=== PATIENT | female | born 1940 | race Caucasian/White ===

== ENCOUNTER → 2018-01-13 13:41 | Outpatient (CLI) | payer MEDICARE, SELFPAY ==
[2018-01-13 14:54] LABS: ALB/GLOB Ratio 0.9 RATIO (0.9-2.4); AST(SGOT) 15 U/L (15-37); Alanine Aminotransfer ALT/SGPT 17 U/L (13-56); Albumin, Serum 3.6 g/dL (3.2-5.0); Alkaline Phosphatase 103 U/L (45-117); Anion Gap 6 (5-15); BUN 21 mg/dL (7-18); BUN/Creat Ratio 20.6 RATIO (10-20); Calcium,Total 8.7 mg/dL (8.5-10.1); Chloride 109 mmol/L (98-107); Creatinine, Serum 1.02 mg/dL (0.55-1.02); EST Glomerular Filtration Rate 56 mL/min (>60); Est Glom Filt Rate - Afr Amer 68 mL/min (>60); Globulin 4.2 g/dL (2.2-4.2); Glucose 89 mg/dL (74-106); Potassium 4.3 mmol/L (3.5-5.1); Protein, Total 7.8 g/dL (6.4-8.2); Sodium Level 141 mmol/L (136-145); Thyroid Stim Hormone (TSH) 2.17 uIU/mL (0.358-3.74)
== END ==
PROVIDERS: Family Provider Family Medicine; PCP Family Medicine; Visit Provider Family Medicine
DX: E03.9 Hypothyroidism, unspecified (principal); Z85.528 Personal history of other malignant neoplasm of kidney
CPT/HCPCS: 80053; 84443

== ENCOUNTER → 2018-07-02 08:04 | Outpatient (CLI) | payer MEDICARE, SELFPAY ==
[2018-07-02 09:15] LABS: ALB/GLOB Ratio 0.8 RATIO (0.9-2.4); AST(SGOT) 15 U/L (15-37); Alanine Aminotransfer ALT/SGPT 20 U/L (13-56); Albumin, Serum 3.4 g/dL (3.2-5.0); Alkaline Phosphatase 87 U/L (45-117); Anion Gap 6 (5-15); BUN 14 mg/dL (7-18); BUN/Creat Ratio 14.5 RATIO (10-20); Calcium,Total 8.8 mg/dL (8.5-10.1); Chloride 106 mmol/L (98-107); Cholesterol 165 mg/dL (200); Creatinine, Serum 0.96 mg/dL (0.55-1.02); EST Glomerular Filtration Rate 60 mL/min (>60); Est Glom Filt Rate - Afr Amer 72 mL/min (>60); Globulin 4.1 g/dL (2.2-4.2); Glucose 97 mg/dL (74-106); High Density Lipoprotein 43 mg/dL; Potassium 4.1 mmol/L (3.5-5.1); Protein, Total 7.5 g/dL (6.4-8.2); Sodium Level 140 mmol/L (136-145); Triglycerides 147 mg/dL; Very Low Density Lipoprotein 29 mg/dL (5-40)
== END ==
PROVIDERS: Family Provider Family Medicine; PCP Family Medicine; Referring Provider Family Medicine; Visit Provider Family Medicine
DX: E78.5 Hyperlipidemia, unspecified (principal); N18.3 Chronic kidney disease, stage 3 (moderate); Z85.528 Personal history of other malignant neoplasm of kidney
CPT/HCPCS: 36415; 80053; 80061

== ENCOUNTER → 2019-06-23 07:43 | Outpatient (CLI) | payer MEDICARE, SELFPAY ==
[2019-06-23 09:04] LABS: ALB/GLOB Ratio 0.9 RATIO (0.9-2.4); AST(SGOT) 15 U/L (15-37); Alanine Aminotransfer ALT/SGPT 21 U/L (13-56); Albumin, Serum 3.6 g/dL (3.2-5.0); Alkaline Phosphatase 94 U/L (45-117); Anion Gap 3 (5-15); BUN 17 mg/dL (7-18); BUN/Creat Ratio 16.5 RATIO (10-20); Calcium,Total 8.7 mg/dL (8.5-10.1); Chloride 107 mmol/L (98-107); Cholesterol 171 mg/dL (200); Creatinine, Serum 1.03 mg/dL (0.55-1.02); EST Glomerular Filtration Rate 55 mL/min (>60); Est Glom Filt Rate - Afr Amer 67 mL/min (>60); Globulin 4.2 g/dL (2.2-4.2); Glucose 111 mg/dL (74-106); High Density Lipoprotein 49 mg/dL; Potassium 4.1 mmol/L (3.5-5.1); Protein, Total 7.8 g/dL (6.4-8.2); Sodium Level 139 mmol/L (136-145); Triglycerides 150 mg/dL; Very Low Density Lipoprotein 30 mg/dL (5-40)
[2019-06-23 10:52] LABS: Vitamin D,25 Hydroxy 44.5 ng/mL (29.95-100.01)
== END ==
LOC: LAB.FUTURE 07:46 → LAB 07:49
PROVIDERS: Family Provider Family Medicine; PCP Family Medicine; Referring Provider Family Medicine; Visit Provider Family Medicine
DX: E03.9 Hypothyroidism, unspecified (principal); E55.9 Vitamin D deficiency, unspecified; Z85.528 Personal history of other malignant neoplasm of kidney; E78.5 Hyperlipidemia, unspecified
CPT/HCPCS: 36415; 80053; 80061; 82306; 84443

== ENCOUNTER → 2020-06-16 07:58 | Outpatient (CLI) | payer MEDICARE, SELFPAY ==
[2020-06-16 08:34] LABS: Absolute Lymphocyte Count 1.58 X10^3/uL (0.83-4.51); Absolute Neutrophil Count 2.5 X10^3/uL (2.0-7.7); Basophil# 0.04 X10^3/uL; Basophil% 0.9 % (0-1); Eosinophil# 0.09 X10^3/uL; Eosinophils% 1.9 % (0-5); Hematocrit 39.8 % (37-47); Hemoglobin 12.7 g/dL (12.0-15.0); Lymphocyte # 1.58 X10^3/ul (4.0); Lymphocyte % 33.8 % (19-41); Mean Corp Hgb Conc 31.9 g/dL (32-36); Mean Corpuscular Hgb 30.5 pg (27.0-32.0); Mean Corpuscular Volume 95.7 fL (81-99); Monocyte# 0.49 X10^3/uL; Monocyte% 10.5 % (0-10); NRBC Flagged by Analyzer 0 % (0-5); Neutrophil # 2.47 X10^3/uL (2.7-7.7); Neutrophil % 52.7 % (47-70); Platelet Count 232 K/mm3 (150-450); RBC Distribution Width CV 12.4 % (11.6-14.6); RBC Distribution Width SD 43.1 fl (35.1-43.9); Red Blood Count 4.16 M/mm3 (4.2-5.4); White Blood Count 4.7 K/mm3 (4.4-11.0)
[2020-06-16 09:52] LABS: ALB/GLOB Ratio 0.9 RATIO (0.9-2.4); AST(SGOT) 17 U/L (15-37); Alanine Aminotransfer ALT/SGPT 21 U/L (13-56); Albumin, Serum 3.5 g/dL (3.2-5.0); Alkaline Phosphatase 81 U/L (45-117); Anion Gap 7 (5-15); BUN 15 mg/dL (7-18); BUN/Creat Ratio 14.7 RATIO (10-20); Calcium,Total 8.8 mg/dL (8.5-10.1); Chloride 107 mmol/L (98-107); Creatinine, Serum 1.02 mg/dL (0.55-1.02); EST Glomerular Filtration Rate 56 mL/min (>60); Est Glom Filt Rate - Afr Amer 67 mL/min (>60); Glucose 113 mg/dL (74-106); Potassium 4.1 mmol/L (3.5-5.1); Protein, Total 7.5 g/dL (6.4-8.2); Sodium Level 140 mmol/L (136-145); Thyroid Stim Hormone (TSH) 4.11 uIU/mL (0.358-3.74)
== END ==
PROVIDERS: PCP Family Medicine; Referring Provider Family Medicine; Visit Provider Family Medicine
DX: E03.9 Hypothyroidism, unspecified (principal); Z85.528 Personal history of other malignant neoplasm of kidney
CPT/HCPCS: 36415; 80053; 84443; 85025

== ENCOUNTER 2021-03-20 09:51 | Day surgery (SDC) | payer MEDICARE, SELFPAY ==
[2021-03-20] VITALS (7 sets, daily range): BP systolic 109–132; BP diastolic 69–86; PULSE 69–91; RESP 16; TEMP 36.2–37.1; O2SAT 98–100; BMI 22.1
[2021-03-20] MEDS: Lactated Ringers 1,000 ML 100 ML IV (10:54)
--- NOTE | 2021-03-20 13:50 | OP.PCM_ITS ---
Report of Operation Date of Procedure: 03/20/21 Pre-Operative Diagnosis: RIF trigger finger Post-Operative Diagnosis: same Surgery/Procedure Performed:: Release A-1 benjamin RIF Description of Surgical Findings:: Report of Operation Date of Procedure: Preoperative Diagnosis: A1 stenosing tenosynovitis, right [index ] finger Postoperative Diagnosis: same Procedure Performed: Release A1 benjamin, right [ index ] finger Anesthesia: IV Regional Anesthesiologist: Dwayne Perez M.D. Description of Procedure: With appropriate informed consent, the patient was taken to the operative suite. After the induction of regional anesthesia, the right upper extremity was prepared and draped sterilely. Subsequently, a transverse incision was made in the base of the [right index ] finger on the volar aspect overlying the annular benjamin with #15 blade scalpel. Hemostasis was perfected with bipolar electrocautery. Dissection was carried down to the flexor tendon sheath. Retractors were placed medially and laterally for protection of neurovascular structures. Thereafter, the annular benjamin was incised with a combination of scalpel and scissor dissection. The flexor tendon was inspected and I was able to take the right [index ] finger through a full range of motion without any catching, locking or triggering. Subsequently, the wound was irrigated and closed with interrupted sutures of 4-0 nylon. A sterile well- padded dressing and Ren wrap were applied. The tourniquet was released. Excellent blood flow returned to the right upper extremity. The patient was transferred to the PACU in stable and satisfactory condition. Alex Toth DO Surgeon: Alex Toth congressional assistant: None Type of Anesthesia: Block,Surekha Anesthesiologist: Dwayne Perez Admruby VTE Documentation VTE Present on Admission: No VTE Mechan Device Prophylaxis: SCD's VTE Pharm Prophylaxis ordered?: No Reason prophylaxis not ordered:: Treatment Not Indicated
== END 2021-03-20 14:16 | disposition home or self-care (01) ==
LOC: SDC 09:51 → AC 09:52
PROVIDERS: PCP Family Medicine; Referring Provider Orthopaedic Surgery; Visit Provider Orthopaedic Surgery
PROC: (CPT 26055; principal; 2021-03-20 12:40)
DX: M65.321 Trigger finger, right index finger (principal); M65.332 Trigger finger, left middle finger; M19.041 Primary osteoarthritis, right hand; Z20.822 Contact with and (suspected) exposure to COVID-19; Z79.890 Hormone replacement therapy; Z79.899 Other long term (current) drug therapy; K21.9 Gastro-esophageal reflux disease without esophagitis; E07.9 Disorder of thyroid, unspecified
CPT/HCPCS: 26055; 87426; C9803; J7120

== ENCOUNTER 2021-06-09 05:47 | Day surgery (SDC) | payer MEDICARE, SELFPAY ==
[2021-03-20 10:45] VITALS: BMI 22.1
[2021-06-09] VITALS (7 sets, daily range): BP systolic 105–138; BP diastolic 70–78; PULSE 72–85; RESP 16–18; TEMP 35.9–36.9; O2SAT 94–100; BMI 22.2
[2021-06-09] MEDS: Lactated Ringers 1,000 ML 100 ML IV (06:20)
--- NOTE | 2021-06-09 08:29 | PCM.OPRPT ---
Report of Operation Date of Procedure: 06/09/21 Pre-Operative Diagnosis: A 1 stenosing tenosynovitis LIF and LMF Post-Operative Diagnosis: same Surgery/Procedure Performed:: Release trigger fingers LIF and LMF Description of Surgical Findings:: Report of Operation Date of Procedure: Preoperative Diagnosis: A1 stenosing tenosynovitis, left [index and middle ] fingers Postoperative Diagnosis: same Procedure Performed: Release A1 pulleys, left [ middle and index ] fingers Anesthesia: IV Regional Anesthesiologist: Dwayne Estes M.D. Description of Procedure: With appropriate informed consent, the patient was taken to the operative suite. After the induction of regional anesthesia, the left upper extremity was prepared and draped sterilely. Subsequently, a transverse incision was made in the base of the [middle and index ] fingers on the volar aspect overlying the annular benjamin with #15 blade scalpel. Hemostasis was perfected with bipolar electrocautery. Dissection was carried down to the flexor tendon sheath. Retractors were placed medially and laterally for protection of neurovascular structures. Thereafter, the annular benjamin was incised with a combination of scalpel and scissor dissection. The flexor tendon was inspected and I was able to take the left [index and middle ] fingers through a full range of motion without any catching, locking or triggering. Subsequently, the wound was irrigated and closed with interrupted sutures of 4-0 nylon. A sterile well-padded dressing and Ren wrap were applied. The tourniquet was released. Excellent blood flow returned to the left upper extremity. The patient was transferred to the PACU in stable and satisfactory condition. Alex Toth DO Surgeon: Alex Toth gun tester: None Type of Anesthesia: Block,Cross Anchor Anesthesiologist: Dwayne Perez Admruby VTE Documentation VTE Present on Admission: No VTE Mechan Device Prophylaxis: SCD's VTE Pharm Prophylaxis ordered?: No Reason prophylaxis not ordered:: Treatment Not Indicated
[2021-06-09] MEDS: Cefazolin 2 GM in 0.9% Normal Saline 100 ML IV (09:07)
== END 2021-06-09 09:59 | disposition home or self-care (01) ==
LOC: SDC 05:48 → AC 05:49
PROVIDERS: PCP Family Medicine; Referring Provider Orthopaedic Surgery; Visit Provider Orthopaedic Surgery
PROC: (CPT 26055; principal; 2021-06-09 07:20)
DX: M65.322 Trigger finger, left index finger (principal); M65.332 Trigger finger, left middle finger; E07.9 Disorder of thyroid, unspecified; K21.9 Gastro-esophageal reflux disease without esophagitis; Z79.890 Hormone replacement therapy; Z79.899 Other long term (current) drug therapy; Z90.5 Acquired absence of kidney
CPT/HCPCS: 01810; 26055 ×2; J7120; A4216

== ENCOUNTER → 2021-06-29 08:21 | Outpatient (CLI) | payer MEDICARE, SELFPAY ==
[2021-06-29 10:04] LABS: Absolute Lymphocyte Count 1.23 X10^3/uL (0.83-4.51); Absolute Neutrophil Count 2.2 X10^3/uL (2.0-7.7); Basophil# 0.04 X10^3/uL; Basophil% 0.9 % (0-1); Eosinophil# 0.13 X10^3/uL; Hemoglobin 12.6 g/dL (12.0-15.0); Lymphocyte # 1.23 X10^3/ul (0.83-4.51); Lymphocyte % 28.8 % (19-41); Mean Corp Hgb Conc 32.3 g/dL (32-36); Mean Corpuscular Hgb 30.7 pg (27.0-32.0); Mean Corpuscular Volume 95.1 fL (81-99); Monocyte# 0.67 X10^3/uL; Monocyte% 15.7 % (0-10); NRBC Flagged by Analyzer 0 % (0-5); Neutrophil # 2.18 X10^3/uL (2.7-7.7); Neutrophil % 51.1 % (47-70); Platelet Count 214 K/mm3 (150-450); RBC Distribution Width CV 12.9 % (11.6-14.6); RBC Distribution Width SD 44.4 fl (35.1-43.9); White Blood Count 4.3 K/mm3 (4.4-11.0)
[2021-06-29 10:38] LABS: Anion Gap 6 (5-15); BUN 12 mg/dL (7-18); BUN/Creat Ratio 11.8 RATIO (10-20); Calcium,Total 9.1 mg/dL (8.5-10.1); Chloride 107 mmol/L (98-107); Creatinine, Serum 1.02 mg/dL (0.55-1.02); EST Glomerular Filtration Rate 55 mL/min (>60); Est Glom Filt Rate - Afr Amer 67 mL/min (>60); Glucose 119 mg/dL (74-106); Potassium 4.3 mmol/L (3.5-5.1); Sodium Level 139 mmol/L (136-145)
[2021-06-29 10:39] LABS: Vitamin D,25 Hydroxy 36.9 ng/mL
== END ==
PROVIDERS: PCP Family Medicine; Referring Provider Family Medicine; Visit Provider Family Medicine
DX: C64.1 Malignant neoplasm of right kidney, except renal pelvis (principal); E03.9 Hypothyroidism, unspecified; E55.9 Vitamin D deficiency, unspecified; K21.9 Gastro-esophageal reflux disease without esophagitis
CPT/HCPCS: 36415; 80048; 82306; 84443; 85025

== ENCOUNTER → 2022-07-05 | Outpatient (CLI) | payer MEDICARE, SELFPAY ==
--- NOTE | 2022-07-05 07:45 | US_ITS ---
STUDY: ABDOMINAL ULTRASOUND - RIGHT UPPER QUADRANT REASON FOR VISIT: Female, 81 years old RUQ PAIN TECHNIQUE: Ultrasound evaluation of the right upper quadrant was performed with real-time and static godwin-scale imaging. TECHNICAL QUALITY: Adequate. COMPARISON: None. FINDINGS: Liver: The liver measures 14.4 cm. There is increased echogenicity consistent with fatty infiltration. The bile ducts are within normal limits. There is hepatic color flow. The direction of portal flow is hepatopetal. There is no demonstrated mass lesion. Gallbladder: Normal distended gallbladder. The gallbladder wall measures 1.5 mm. There is a negative sonographic Thomson''s sign. There is no pericholecystic fluid. There are no gallstones. Common Bile Duct (C.B.D.): The common bile duct measures 5.5 mm. Pancreas: Normal size of the head, body and tail of the pancreas. There is increased echogenicity of the pancreas. There is no demonstrated pancreatic mass or cyst. Right Kidney: The patient is status post right nephrectomy. US/Gallbladder IMPRESSION: Fatty infiltration of the liver. Status post right nephrectomy. Electronically Signed: Josiah Mcdowell MD at 14:13 EDT ,
== END | disposition home or self-care (01) ==
LOC: US 07:43
PROVIDERS: PCP Nurse Practitioner Family; Referring Provider Nurse Practitioner Family; Visit Provider Nurse Practitioner Family
DX: R10.11 Right upper quadrant pain (principal)
CPT/HCPCS: 76705

== ENCOUNTER → 2023-06-05 | Outpatient (CLI) | payer MEDICARE, SELFPAY ==
[2023-06-05 08:32] LABS: Bacteria 0 SEEN /hpf (None Seen); Mucous, Urine 0 SEEN /hpf (<or=2+); Red Blood Cells-Urine 0 SEEN /hpf (0-5)
[2023-06-05 09:05] LABS: Absolute Lymphocyte Count 1.71 X10^3/uL (0.83-4.51); Absolute Neutrophil Count 2.5 X10^3/uL (2.0-7.7); Basophil# 0.05 X10^3/uL; Eosinophils% 2.1 % (0-5); Hematocrit 39.2 % (37-47); Hemoglobin 12.6 g/dL (12.0-15.0); Lymphocyte # 1.71 X10^3/ul (0.83-4.51); Lymphocyte % 35.8 % (19-41); Mean Corp Hgb Conc 32.1 g/dL (32-36); Mean Corpuscular Volume 96.6 fL (81-99); Mean Platelet Vol. 10.3 fl (6.2-12.0); Monocyte# 0.44 X10^3/uL; Monocyte% 9.2 % (0-10); NRBC Flagged by Analyzer 0 % (0-5); Neutrophil # 2.46 X10^3/uL (2.7-7.7); Neutrophil % 51.7 % (47-70); Platelet Count 201 K/mm3 (150-450); RBC Distribution Width CV 12.4 % (11.6-14.6); RBC Distribution Width SD 43.7 fl (35.1-43.9); Red Blood Count 4.06 M/mm3 (4.2-5.4); White Blood Count 4.8 K/mm3 (4.4-11.0)
[2023-06-05 09:55] LABS: ALB/GLOB Ratio 0.8 RATIO (0.9-2.4); AST(SGOT) 13 U/L (15-37); Alanine Aminotransfer ALT/SGPT 18 U/L (13-56); Albumin, Serum 3.4 g/dL (3.2-5.0); Alkaline Phosphatase 73 U/L (45-117); Anion Gap 5 (5-15); BUN 17 mg/dL (7-18); BUN/Creat Ratio 17.2 RATIO (10-20); Calcium,Total 8.8 mg/dL (8.5-10.1); Chloride 108 mmol/L (98-107); Cholesterol 146 mg/dL (200); Creatinine, Serum 0.99 mg/dL (0.55-1.02); EST Glomerular Filtration Rate 57 mL/min (>60); Est Glom Filt Rate - Afr Amer 69 mL/min (>60); Globulin 4.1 g/dL (2.2-4.2); Glucose 105 mg/dL (74-106); High Density Lipoprotein 47 mg/dL; Potassium 4.4 mmol/L (3.5-5.1); Protein, Total 7.5 g/dL (6.4-8.2); Sodium Level 140 mmol/L (136-145); Thyroid Stim Hormone (TSH) 2.56 uIU/mL (0.358-3.74); Triglycerides 167 mg/dL; Very Low Density Lipoprotein 33 mg/dL (5-40)
[2023-06-05 10:11] LABS: Color, Urine Yellow (Yellow); Glucose, Dipstick Normal (Normal); Ketone-Dipstick Negative (Negative); Leukocyte Esterase-Dipstick 500 /ul (Negative); Nitrite-Dipstick Negative (Negative); Occult Blood-Urine Negative /ul (Negative); Protein-Dipstick 15 mg/dl (Negative); Urine Clarity Clear (Clear); Urine Urobilinogen 1 mg/dl (Normal)
[2023-06-05 10:16] LABS: Urine Bilirubin Dipstick 1 mg/dL (Negative)
[2023-06-05 11:29] LABS: Squamous Epithelial Cells - UA 0-5 SEEN /hpf (5-10); White Blood Cells 0-5 SEEN /hpf (0-5)
== END | disposition home or self-care (01) ==
LOC: LAB 08:15
PROVIDERS: PCP Nurse Practitioner Family; Referring Provider Nurse Practitioner Family; Visit Provider Nurse Practitioner Family
DX: E78.1 Pure hyperglyceridemia (principal); D50.9 Iron deficiency anemia, unspecified; E03.9 Hypothyroidism, unspecified; K76.0 Fatty (change of) liver, not elsewhere classified
CPT/HCPCS: 36415; 80053; 80061; 81001; 84443; 85025

== ENCOUNTER 2023-06-20 10:00 | Outpatient (RCR) | payer MEDICARE, SELFPAY ==
--- NOTE | 2023-06-17 10:41 | HP.PTEVAL ---
Patient's Visit Information Visit Information Visit Information: NELLY WRIGHT is a 82 year old F referred to Physical Therapy by DIANA Lynch with a diagnosis of vertigo. Date of Evaluation: 06/17/23 Physical Therapist: Fransisco Brink, DPT, OCS, CSCS Visit Plan Frequency: 1x/Week Duration: 2-4 Weeks Plan: weekly x 2-4 as needed for positioonal check and treat, R ana lilia done today. Subjective Subjective: Get dizzy turning to r in bed and looking up. This has been happening for a couple months insidiously. This lasts only a few seconds. Happens when lying down. No dizzyness lately. Activiities are normal outsixde of avoiding looking up and rolling R. Not employed. Balance is good, no falls. Objective Objective: Walks I into PT, transitions easy and steps reciprocally without rail. cervical aROM WFL and without pain. UE AROM WFL - L Hallpike brittni + R hallpike brittni for up torsional nystagmus of 6 seconds. Treated with R modified ana lilia and then - R HD. Balance/Special Test Scores Functional Gait Assessment Score: 28 % Disability: 6.6700 Dizziness Score: 14 Goals Goal 1:: Abolish vertigo with looking up and lying on right side Goal Time Frame: 2-4 Weeks Goal 2:: 2 or less DHI Goal Time Frame: 2-4 Weeks Rehabilitation Potential Physical Therapy Diagnosis: BPPV R PC Rehabilitation Potential: Excellent Anticipated Interventions Patient/Client Instruction: Educate patient on: Condition and Plan of Care For the Purpose of:: To increase tolerance to activity/condition/position and To improve ability of physical actions for home/community/work/leisure Comment: positional ex and treatments. For the Purpose of:: To increase tolerance to activity/condition/position Text: Thank you for the opportunity to evaluate your patient. For Medicare and Medicare HMO plans, please review the plan of care and approve it. It will need to be FAXED BACK to us at [phone] for Medicare purposes. For Medicare only, by signing this I certify the plan of care. Please let me know if there are questions or concerns regarding this plan of care. Physician Signature: Date:
--- NOTE | 2023-06-20 10:06 | HP.PTDCSUM ---
Discharge Summary D/C summary: It has been my pleasure to treat NELLY WRIGHT referred by EDIN LynchC, with the diagnosis of vertigo for a total of 2 visit(s). Discharge Date: 06/20/23 Please see the following information for a summary of their discharge status. Subjective Subjective: No dizzyness since Saturday, Activitiy has been normal including rolling allk over in bed and cleaning house. 100% better Overall Improvement % Improvement: 100 Objective Objective/Function: Normal walking and balance and transfers today, jumps right out of chair and walks quickly. - B hallpike brittni - roll test. Goals Goal 1:: Abolish vertigo with looking up and lying on right side Goal Progress: Goal Met Goal 2:: 2 or less DHI Goal Progress: Goal Met Plan Plan: d/c D/C Information d/c sentence: If there are questions or concerns regarding this patient's physical therapy, please feel free to call me at [phone]. Thank you for the referral of this patient. Sincerely, Fransisco Brink, DPT, OCS, CSCS Balance/Gait/Functional tests Balance/Special Test Scores Functional Gait Assessment Score: 28 % Disability: 6.6700 Dizziness Score: 0 Improvement % Improvement: 100
== END 2023-06-20 10:21 | disposition home or self-care (01) ==
LOC: PT 10:00
PROVIDERS: PCP Nurse Practitioner Family; Referring Provider Nurse Practitioner Family; Visit Provider Nurse Practitioner Family
DX: H81.10 Benign paroxysmal vertigo, unspecified ear (principal)
CPT/HCPCS: 97161; 97164

== ENCOUNTER → 2023-07-02 | Outpatient (CLI) | payer MEDICARE, SELFPAY ==
--- NOTE | 2023-07-02 07:42 | ECHOD_ITS ---
Reason For Study: ABN EKG Procedure This was a 2D Doppler, Color Flow transthoracic echocardiogram. Exam performed in department. Left Ventricle Normal LV size. Left ventricular systolic function is normal. The estimated ejection fraction is 65 %. No regional wall motion abnormalities noted. Right Ventricle Normal RV size. Normal systolic function. Atria Normal left atrium. Normal right atrium. Mitral Valve Normal mitral valve. Tricuspid Valve Normal tricuspid valve. Mild tricuspid valve insufficiency. Pulmonary artery systolic pressure is 34 mmHg. Aortic Valve Normal aortic valve. Pulmonic Valve Normal pulmonic valve. Great Vessels Normal aortic root. The pulmonary artery is normal size. Inferior vena cava collapse with respiration. Pericardium/Pleural No pericardial effusion. MMode/2D Measurements & Calculations LVIDd: 3.4 cm IVSd: 0.86 cm Ao root diam: 3.2 cm LVIDs: 2.0 cm LVPWd: 0.96 cm RVDd: 3.2 cm FS: 40.0 % LAV(MOD-bp): 37.3 ml LVAd ap4: 19.6 cm2 SV(MOD-sp4): 26.9 ml LAV(MOD-bp) Indexed: 25.8 ml/m2 LVLd ap4: 7.3 cm LAV(MOD-sp2): 33.9 ml EDV(MOD-sp4): 44.5 ml LAV(MOD-sp4): 32.2 ml EDV(sp4-el): 44.8 ml LVAs ap4: 10.9 cm2 LVLs ap4: 5.7 cm ESV(MOD-sp4): 17.6 ml ESV(sp4-el): 17.6 ml EF(MOD-sp4): 60.4 % EF(sp4-el): 60.7 % SV(sp4-el): 27.2 ml LA A4 area: 15.0 cm2 LA dimension(2D): 2.6 cm RA A4 area: 16.7 cm2 TAPSE: 2.2 cm Time Measurements MV dec time: 0.13 sec Doppler Measurements & Calculations MV E max archie: 93.8 cm/sec Lat Peak E' Archie: 8.4 cm/sec Med Peak E' Archie: 7.9 cm/sec MV A max archie: 87.9 cm/sec E/E' lat: 11.2 E/E' med: 11.8 MV E/A: 1.1 MV V2 max: 94.3 cm/sec Ao V2 max: 150.6 cm/sec MV max P.6 mmHg MV dec slope: 745.2 cm/sec2 Ao max P.1 mmHg MV V2 mean: 63.5 cm/sec Ao V2 mean: 103.2 cm/sec MV mean P.8 mmHg Ao mean P.9 mmHg MV V2 VTI: 26.4 cm Ao V2 VTI: 31.9 cm AV (velocity ratio): 0.65 LV V1 max: 94.8 cm/sec PA V2 max: 103.3 cm/sec TR max archie: 276.4 cm/sec LV V1 max P.6 mmHg PA V2 mean: 77.0 cm/sec TR max P.6 mmHg LV V1 mean P.1 mmHg LV V1 mean: 68.2 cm/sec LV V1 VTI: 20.8 cm ECHO/Echo Complete Interpretation Summary Normal LV size. Left ventricular systolic function is normal. The estimated ejection fraction is 65 %. Pulmonary artery systolic pressure is 34 mmHg. Ordering Physician: Shagufta Brink Referring Physician: Shagufta Brink Performed By: Shakira Doyle RCS
== END | disposition home or self-care (01) ==
LOC: CVS 07:41
PROVIDERS: PCP Nurse Practitioner Family; Referring Provider Nurse Practitioner Family; Visit Provider Nurse Practitioner Family
DX: R94.31 Abnormal electrocardiogram [ECG] [EKG] (principal)
CPT/HCPCS: 93306

== ENCOUNTER 2023-12-16 06:44 | Day surgery (SDC) | payer MEDICARE, SELFPAY ==
[2023-12-16] VITALS (7 sets, daily range): BP systolic 97–122; BP diastolic 62–76; PULSE 66–74; RESP 16–18; TEMP 36.1–36.8; O2SAT 97–99; BMI 21.2
--- NOTE | 2023-12-16 | COLBX_PTH ---
PATIENT: NELLY WRIGHT LOC: EN U#:[id number] AGE/SX: 82/F ROOM: RE12/16/[address]: Dr. Oral Silva MD : 1940 BED: DIS: 12/16/2023 SPEC #: [id number] RECD: 12/16/23 13:52 STATUS: ALBINO REArik #: [id number] IRENE: 12/16/23 00:[address]: Oral Silva DEPT: SURGICAL PATHOLOGY RECD BY: Bud Esparza ENTERED: 12/16/23 13:53 SP TYPE: COLON BX OTHR DR: Shagufta Brink, NAVI-C Tissues: A - Sigmoid colon biopsy B - Sigmoid colon biopsy C - Rectum, NOS D - Rectum, NOS E - Rectum, NOS Procedures: Surgery Specimen Level IV HEADER OPERATION: Colonoscopy with polypectomy, biopsy, endoscopic tattoo PRE-OP DIAGNOSIS: Guaiac positive stools TISSUE SUBMITTED: A- Proximal sigmoid polyp, B- Mid sigmoid polyp, C- Rectum sigmoid biopsy, D- Proximal rectum biopsy, E- Distal rectum polyp MICROSCOPIC DIAGNOSIS A. Proximal sigmoid polyp, polypectomy; Fragments of tubular adenoma. B. Mid sigmoid polyp, polypectomy; Fragments of tubular adenoma. C. Rectum sigmoid, biopsy; Fragments of tubular adenoma. D. Proximal rectum, biopsy; Fragments of hyperplastic polyp. E. Distal rectum polyp, polypectomy; Tubular adenoma. SYLVAIN/ 12/17/23 MICROSCOPIC DESCRIPTION Slides are reviewed. GROSS DESCRIPTION A. Received in fixative is one container labeled with the patient's name and designated Proximal sigmoid polyp. The specimen consists of two irregular fragments of light blankenship soft tissue that in aggregate measure 0.8 x 0.8 x 0.1 cm. The specimen is totally submitted in one cassette. B. Received in fixative is one container labeled with the patient's name and designated Mid sigmoid polyp. The specimen consists of multiple irregular fragments of light blankenship soft tissue that in aggregate measure 1.0 x 0.7 x 0.1 cm. The specimen is totally submitted in one cassette. C. Received in fixative is one container labeled with the patient's name and designated Rectal sigmoid biopsy. The specimen consists of multiple irregular fragments of light blankenship soft tissue that in aggregate measure 0.8 x 0.3 x 0.1 cm. The specimen is totally submitted in one cassette. D. Received in fixative is one container labeled with the patient's name and designated Proximal rectum biopsy. The specimen consists of multiple irregular fragments of light blankenship soft tissue that in aggregate measure 1.0 x 0.3 x 0.1 cm. The specimen is totally submitted in one cassette. E. Received in fixative is one container labeled with the patient's name and designated Distal rectum polyp. The specimen consists of a pink-red polyp measuring 0.7 x 0.5 x 0.5 cm. The presumed base is inked. The polyp is bisected and submitted entirely in one cassette. Alba 12/16/23 TC:1 CPT: 71846y6
--- NOTE | 2023-12-16 07:12 | HP.PCM_ITS ---
History and Physical Date of Admission: 12/16/23 isit Reasons: BLOOD IN ANA LUISA Chief Complaint: blood in stool Section 8 Property Manager Required: No Accompanied by: Is patient in pain?: No Allergies Iodinated Contrast Media [CONTRASTS] Adverse Reaction (Verified 11/05/23 09:32) shivers Medications levothyroxine 50 mcg capsule 50 mcg PO QHS 03/17/21 [History Confirmed 11/05/23] cholecalciferol (vitamin D3) 25 mcg (1,000 unit) capsule (Vitamin D3) 25 mcg PO BID 12/29/21 [History Confirmed 11/05/23] omeprazole 10 mg capsule,delayed release 20 mg PO .prn PRN 01/18/22 [History Confirmed 11/05/23] PFSH Medical History Arthritis Cancer Gastric reflux History of renal disease History of trigger finger History of trigger finger Low iron Migraine headache Non-smoker Thyroid disease Wears glasses Wears partial dentures Surgical History History of esophagogastroduodenoscopy (EGD) History of nephrectomy, right Hx of colonoscopy Social History Smoking Status: Never smoker alcohol intake: never substance use type: does not use HPI HPI HPI: 82-year-old female is being referred by DIANA Lynch for surgical consultation regarding blood noted on her toilet paper. By history she had a remote colonoscopy by Dr. Holden Thomson 20 years ago. Question whether she had some polyps at that time. She was having trouble with constipation so took some Dulcolax. It is of additional that she has had a history of renal cell cancer. She was noted to have positive stool guaiac. White blood cell count is 5.4 with a hemoglobin of 12.9 hematocrit 38.9 platelet count 224,000. The patient noted episode of bright red blood per rectum. It was after she was constipated. She does take Dulcolax. Her previous colonoscopy was 20 years ago. She states that the bowel prep failed and she had to be rescheduled and redo the prep. She is hoping she can does not have to do that this time. She states she cannot take large volumes of fluid The patient is otherwise enjoying a very high quality of life. She denies abdominal pain no unexpected weight loss. She walks 2 miles daily. No memory deficits. She had a previous history of kidney cancer 1993 but has had no recurrence ROS Endo Endocrine: Yes thyroid disease Gastro Gastrointestinal: Yes blood in stool Exam Const General: cooperative, healthy appearing and comfortable Nutritional Appearance: average body habitus Orientation: alert and awake HENMT Head: normal to inspection Eyes General: appearance normal, both eyes and all related structures Neck Neck: normal visual inspection Resp Effort & Inspection: normal respiratory effort Auscultation: clear to auscultation bilaterally Cardio Rate: regular rate Rhythm: regular rhythm GI Inspection: normal to inspection Palpation: soft and no hepatosplenomegaly Musc Cervical Spine: normal cervical lordosis Skin General: no rashes or lesions noted Neuro General: patient alert, patient awake and patient oriented x3 Extrem General: no calf tenderness Psych Appearance: grossly normal Assessment and Plan Assessment and Plan (1) Guaiac positive stools: Status: Acute Plan: 82-year-old female who is enjoying a very high quality of life. I do recommend to her a colonoscopy with possible biopsy or polypectomy as indicated. She is aware of technique, benefit, risk, alternatives. She has had a remote history of kidney cancer. She states that there is various cancers throughout her bloodline but she does not recall a history of colon cancer. The only chronic medication that she takes is levothyroxine omeprazole and cholecalciferol. She is denying any abdominal pain. There is some concern regarding potential for adverse effect. However when I explained to her whether she would have surgical intervention if she were determined to have cancer presented with an acute complication of colon cancer she readily explained yes. I believe that the risk-benefit ratio to her colonoscopy is in her favor. Because of her chronic constipation we will do 2 days of clear liquids and utilize Dulcolax tablets on day 1 because of her history of difficulty taking in large volumes of fluids. Copy: EDIN LynchC Oral Silva M.D., F.A.C.S. I have examined the patient and the H&P has been reviewed. There are no clinical changes since date of exam. Oral Silva M.D., F.A.C.S.
[2023-12-16] MEDS: Lactated Ringers 1,000 ML 15 ML IV (07:19)
--- NOTE | 2023-12-16 08:57 | OP.COLON_ITS ---
Patient Name: Shelley Li Procedure Date: 12/16/2023 7:57 AM Date of : 1940 Age: 82 Procedure: Colonoscopy Indications: Rectal bleeding Providers: Oral Silva MD Medicines: See the Anesthesia note for documentation of the administered medications Patient Profile: Last Colonoscopy: none. The patient's first colonoscopy is today. Complications: No immediate complications. Procedure: Pre-Anesthesia Assessment: - Prior to the procedure, a History and Physical was performed, and patient medications and allergies were reviewed. The patient's tolerance of previous anesthesia was also reviewed. The risks and benefits of the procedure and the sedation options and risks were discussed with the patient. All questions were answered, and informed consent was obtained. Prior Anticoagulants: The patient has taken no anticoagulant or antiplatelet agents. ASA Grade Assessment: II - A patient with mild systemic disease. After reviewing the risks and benefits, the patient was deemed in satisfactory condition to undergo the procedure. After I obtained informed consent, the scope was passed under direct vision. Throughout the procedure, the patient's blood pressure, pulse, and oxygen saturations were monitored continuously. The Colonoscope was introduced through the anus and advanced to the terminal ileum, with identification of the appendiceal orifice and IC valve. The colonoscopy was technically difficult and complex due to multiple polyps. The patient tolerated the procedure well. The quality of the bowel preparation was good. The ileocecal valve and the appendiceal orifice were photographed. Scope In: 8:02:25 AM Scope Withdrawal Time 0 hours 31 minutes 43 seconds Scope Out: 8:40:28 AM Total Procedure Duration Time 0 hours 38 minutes 3 seconds Findings: The digital rectal exam findings include non-thrombosed external hemorrhoids, non-thrombosed internal hemorrhoids and internal hemorrhoids that prolapse with straining, but spontaneously regress to the resting position (Grade II). Multiple diverticula were found in the sigmoid colon. A 7 mm polyp was found in the proximal sigmoid colon. The polyp was sessile. The polyp was removed with a hot snare. Resection and retrieval were complete. To prevent bleeding post-intervention, one hemostatic clip was successfully placed. There was no bleeding at the end of the procedure. A 7 mm polyp was found in the mid sigmoid colon. The polyp was sessile. The polyp was removed with a hot snare. Resection and retrieval were complete. A frond-like/villous non-obstructing large mass was found in the recto-sigmoid colon. The mass was partially circumferential (involving one-half of the lumen circumference). No bleeding was present. This was biopsied with a cold forceps for histology. Area was tattooed with an injection of 2 mL of Jeniffer ink. Three sessile polyps were found in the proximal rectum. The polyps were 3 to 4 mm in size. These polyps were removed with a cold biopsy forceps. Resection and retrieval were complete. An 8 mm polyp was found in the distal rectum. The polyp was sessile. The polyp was removed with a hot snare. Resection and retrieval were complete. Impression: - Non-thrombosed external hemorrhoids, non-thrombosed internal hemorrhoids and internal hemorrhoids that prolapse with straining, but spontaneously regress to the resting position (Grade II) found on digital rectal exam. - Diverticulosis in the sigmoid colon. - One 7 mm polyp in the proximal sigmoid colon, removed with a hot snare. Resected and retrieved. Clip was placed. - One 7 mm polyp in the mid sigmoid colon, removed with a hot snare. Resected and retrieved. - Tumor in the recto-sigmoid colon. Biopsied. Tattooed. - Three 3 to 4 mm polyps in the proximal rectum, removed with a cold biopsy forceps. Resected and retrieved. - One 8 mm polyp in the distal rectum, removed with a hot snare. Resected and retrieved. Recommendation: - Discharge patient to home. - Resume previous diet. - Continue present medications. - Repeat colonoscopy for surveillance. - Return to my office in 1 week. - Repeat colonoscopy in 1 year for surveillance. - Perform CT scan (computed tomography) of the abdomen with contrast in 1 week. Procedure Code(s): --- Professional --- 63052, Colonoscopy, flexible; with removal of tumor(s), polyp(s), or other lesion(s) by snare technique 02272, 59, Colonoscopy, flexible; with biopsy, single or multiple 85557, Colonoscopy, flexible; with directed submucosal injection(s), any substance Diagnosis Code(s): --- Professional --- K64.1, Second degree hemorrhoids K64.4, Residual hemorrhoidal skin tags D12.5, Benign neoplasm of sigmoid colon D12.8, Benign neoplasm of rectum D49.0, Neoplasm of unspecified behavior of digestive system K62.5, Hemorrhage of anus and rectum K57.30, Diverticulosis of large intestine without perforation or abscess without bleeding CPT copyright 2021 [employer]. All rights reserved. The codes documented in this report are preliminary and upon head refrigeration engineer review may be revised to meet current compliance requirements. Oral Silva MD 12/16/2023 8:56:58 AM This report has been signed electronically. Number of Addenda: 0 Note Initiated On: 12/16/2023 7:57 AM
--- NOTE | 2023-12-16 08:57 | OP.CCLET_ITS ---
12/16/2023 Edmond Lynch Re : Colonoscopy procedure for Shelley Brink This procedure was performed on Saturday, December 16, 2023. My impressions and recommendations are as follows: Impressions : - Non-thrombosed external hemorrhoids, non-thrombosed internal hemorrhoids and internal hemorrhoids that prolapse with straining, but spontaneously regress to the resting position (Grade II) found on digital rectal exam. - Diverticulosis in the sigmoid colon. - One 7 mm polyp in the proximal sigmoid colon, removed with a hot snare. Resected and retrieved. Clip was placed. - One 7 mm polyp in the mid sigmoid colon, removed with a hot snare. Resected and retrieved. - Tumor in the recto-sigmoid colon. Biopsied. Tattooed. - Three 3 to 4 mm polyps in the proximal rectum, removed with a cold biopsy forceps. Resected and retrieved. - One 8 mm polyp in the distal rectum, removed with a hot snare. Resected and retrieved. Recommendations : - Discharge patient to home. - Resume previous diet. - Continue present medications. - Repeat colonoscopy for surveillance. - Return to my office in 1 week. - Repeat colonoscopy in 1 year for surveillance. - Perform CT scan (computed tomography) of the abdomen with contrast in 1 week. My findings are described in the full procedure note, which is enclosed. If I can be of further assistance, please feel free to contact me at Doctor phone number(s): Work: . Sincerely, Oral Silva MD 12/16/2023 8:56:58 AM This report has been signed electronically.
== END 2023-12-16 09:45 | disposition home or self-care (01) ==
LOC: EN 06:46 → AC 06:47
PROVIDERS: PCP Nurse Practitioner Family; Referring Provider Nurse Practitioner Family; Visit Provider Surgery
PROC: 0DJD8ZZ Inspection of Lower Intestinal Tract, Via Natural or Artificial Opening Endoscopic (ICD-10-PCS; CPT 45378; principal; 2023-12-16 08:25)
DX: K62.5 Hemorrhage of anus and rectum (principal); K63.5 Polyp of colon; K57.30 Diverticulosis of large intestine without perforation or abscess without bleeding; E07.9 Disorder of thyroid, unspecified; K62.1 Rectal polyp; K64.4 Residual hemorrhoidal skin tags; Z79.899 Other long term (current) drug therapy; K21.9 Gastro-esophageal reflux disease without esophagitis; Z90.5 Acquired absence of kidney; Z85.89 Personal history of malignant neoplasm of other organs and systems; K64.1 Second degree hemorrhoids; D49.0 Neoplasm of unspecified behavior of digestive system
CPT/HCPCS: 45385; 45380; 45381; 88305; J7120; A4648; J2405

== ENCOUNTER → 2023-12-19 | Outpatient (CLI) | payer MEDICARE, SELFPAY ==
--- NOTE | 2023-12-19 13:45 | CT_ITS ---
STUDY: CT ABDOMEN AND PELVIS WITH CONTRAST REASON FOR EXAM: Female, 83 years old. Rectal mass RADIATION DOSAGE (If Supplied By Facility): CTDIvol = ( 10.76 ) mGy, DLP = ( 412.26 ) mGycm TECHNIQUE: Oral and amp; IV Readi-CAT and amp; 75mL Isovue-300 was administered. Transaxial images were obtained from the dome of the diaphragm to the symphysis pubis in the arterial, nephrographic and excretory phases. Multiplanar coronal and sagittal images were reformatted. Individualized Dose Optimization Techniques Were Used For This CT. COMPARISON: No relevant prior comparison study available FINDINGS: The visualized lung bases are unremarkable. The visualized portions of the heart are within normal limits. Normal liver. No evidence of gallstones. Prominent common bile duct measuring up to 9 mm. No evidence of retained stones. Normal spleen. Normal pancreas. Normal bilateral adrenal glands. Absent right kidney. Few left parapelvic cysts. No evidence of hydronephrosis. The stomach is distended. Normal in caliber small bowel loops. Fecal retention. Unremarkable appendix. Diverticulosis without evidence of acute diverticulitis. No definite rectal mass is seen. The colon is better evaluated by colonoscopy. The appendix is visualized and appears normal. No evidence of abdominal aortic aneurysm. No retroperitoneal adenopathy. Urinary bladder is not well distended. Mass in the fundus of uterus likely due to uterine fibroid. No discrete abdominal wall hernia. Degenerative changes of the lumbar spine and the level of L4-5. CT/Abdomen/Pelvis WITH Contrast IMPRESSION: 1. No focal acute inflammatory process. 2. No rectal mass is seen on this exam. The colon is better evaluated by colonoscopy. 3. Absent right kidney. 4. Probable uterine fibroid. Electronically Signed: Gonzalo Ware MD at 14:39 EDT ,
[2023-12-19 14:25] LABS: CREATININE FINGERSTICK < 1.0 mg/dL (0.55-1.02); EGFR FINGERSTICK > 60.0000 mL/min (>60)
== END | disposition home or self-care (01) ==
LOC: CT 13:44
PROVIDERS: PCP Nurse Practitioner Family; Referring Provider Surgery; Visit Provider Surgery
DX: R19.5 Other fecal abnormalities (principal); R93.3 Abnormal findings on diagnostic imaging of other parts of digestive tract; K62.89 Other specified diseases of anus and rectum
CPT/HCPCS: 74177; Q9967

== ENCOUNTER → 2023-12-27 | Outpatient (CLI) | payer MEDICARE, SELFPAY ==
--- NOTE | 2023-12-26 08:40 | RAD_ITS ---
STUDY: X-RAY - ABDOMEN/PELVIS REASON FOR EXAM: Female, 83 years old. Rectosigmoid mass seen on colonoscopy -- only of rectum and sigmoid area TECHNIQUE: Single AP view of the abdomen / pelvis. COMPARISON: None. FINDINGS: Small amount of residual contrast is seen within diverticula in the descending colon as well as rectosigmoid colon. A metallic clip is seen overlying the left iliac bone most likely representing the site of colonoscopic dilated biopsy. Fecal material is seen throughout the colon. There is a 5.5 mm calcification overlying the midportion of the right abdomen. The patient does not have a right kidney. Normal soft tissue structures. There are mild degenerative changes of the visualized lumbar spine. RAD/Abdomen Single View IMPRESSION: Fecal material is seen throughout the colon. Electronically Signed: Josiah Mcdowell MD at 8:38 EDT ,
--- NOTE | 2023-12-27 08:20 | RAD_ITS ---
STUDY: BARIUM ENEMA. REASON FOR EXAM: Female, 83 years old. rectosigmoid mass seen on colonoscopy -- only of rectum and sigmoid area FLUOROSCOPY TIME (if supplied): ( 56 seconds ) minutes/seconds. 18.72 mGy. 11 images were submitted. TECHNIQUE: A washer and crusher tender film was obtained. Following this, contrast was introduced retrograde into the rectum. COMPARISON: None. FINDINGS: On the washer and crusher tender film, a metallic clip is seen overlying the sigmoid colon suggestive of possible prior biopsy. There is evidence of extensive sigmoid diverticulosis as well as diverticular disease involving the descending colon. No evidence of obstruction to the retrograde or antegrade flow of contrast. RAD/Barium Enema No Air Cont IMPRESSION: Diverticulosis of the descending colon and rectosigmoid colon. Electronically Signed: Josiah Mcdowell MD at 9:46 EDT ,
== END | disposition home or self-care (01) ==
PROVIDERS: PCP Nurse Practitioner Family; Referring Provider Physician Assistant; Visit Provider Physician Assistant
DX: R19.00 Intra-abdominal and pelvic swelling, mass and lump, unspecified site (principal); K57.30 Diverticulosis of large intestine without perforation or abscess without bleeding
CPT/HCPCS: 74018; 74270